=== PATIENT | male | born 2000 | race Caucasian/White ===

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

== ENCOUNTER → 2020-08-13 | Outpatient (REF) | payer OTHER, SELFPAY ==
[~2020-08-13] MED LIST: ALBU17IN INH; CLON0.3T PO; HYDR50TA70 PO; OXCA300S3 PO; SERO1TAB PO; SERO200T PO; TRAZ-257 PO
== END ==
LOC: M LAB REF 12:06
PROVIDERS: ATTEND Physician Assistant
DX: J03.90 Acute tonsillitis, unspecified (principal)